=== PATIENT | male | born 1955 ===

== ENCOUNTER 2019-10-06 10:59 | Outpatient (CLI) | payer OTHER | END 2019-10-06 11:00 | disposition home or self-care (01) | LOC: SONOGRAMA 10:59 → EDBD 10:59 → SONOGRAMA 11:00 → MAMO-SONO 11:15 | PROVIDERS: ATTEND Internal Medicine Cardiovascular Disease | DX: R10.84 Generalized abdominal pain (principal) ==

== ENCOUNTER 2024-12-27 10:32 | Outpatient (CLI) | payer OTHER | END 2024-12-27 10:38 | disposition home or self-care (01) | LOC: SONOGRAMA 10:32 | PROVIDERS: ATTEND Internal Medicine Cardiovascular Disease | DX: M19.90 Unspecified osteoarthritis, unspecified site (principal) ==

== ENCOUNTER 2025-03-30 12:48 | Outpatient (CLI) | payer OTHER | END 2025-03-30 13:42 | disposition home or self-care (01) | LOC: MRI 12:48 | PROVIDERS: ATTEND Internal Medicine Cardiovascular Disease | DX: M12.9 Arthropathy, unspecified (principal) | CPT/HCPCS: 73721 ==